=== PATIENT | male | born 1995 | race Caucasian/White ===

== ENCOUNTER 2017-04-15 19:10 | Emergency (ER) | payer BC, OTHER ==
[2017-04-15 20:14] VITALS: BP 131/73; PULSE 64; RESP 18; TEMP 98.2; O2SAT 100
--- NOTE | 2017-04-15 20:40 | PD ---
HPI Chief Complaint: Injury Time Seen by Provider: 20:35 Travel History International Travel<30 days: No Contact w/Intl Traveler<30days: No Traveled to known affect area: No History of Present Illness HPI 21-year-old [id number] male presents for evaluation of left thumb injury. He reports that earlier today he was playing lacrosse when a stick hit his left thumb. He sustained an injury to the left nailbed and nail. He was seen at an urgent care center and told that he had a fracture to the distal phalanx and he was referred here for further evaluation. He reports a mild throbbing pain to the distal left thumb which is worse with palpation, alleviated with lidocaine administration at the urgent care center. His last tetanus vaccination is unknown. He has no other complaints at this time. [facility] Social History Alcohol Use: No Tobacco Use: No Allergies-Medications (Allergen,Severity, Reaction): Coded Allergies: No Known Allergies (Unverified , 04/15/17) Reported Meds & Prescriptions Reported Meds & Active Scripts Active Tylenol-Codeine #3 (Acetaminophen-Codeine) 300-30 mg Tab 1 Tab PO Q4H PRN Keflex (Cephalexin) 500 Mg Capsule 500 Mg PO TID 7 Days Review of Systems General / Constitutional: No: Fever, Chills Musculoskeletal: Positive: Pain Skin: Positive Other (Positive for bleeding, pain) Physical Exam Narrative GENERAL: Well-nourished male in no acute distress SKIN: Warm and dry. HEAD: Atraumatic. Normocephalic. EYES: Pupils equal and round. No scleral icterus. No injection or drainage. ENT: No nasal bleeding or discharge. Mucous membranes pink and moist. NECK: Trachea midline. No JVD. CARDIOVASCULAR: Regular rate and rhythm. No murmur appreciated. RESPIRATORY: No accessory muscle use. Clear to auscultation. Breath sounds equal bilaterally. MUSCULOSKELETAL: Examination of left thumb reveals an injury to the medial nail with an avulsion off the nailbed. There is dried clotted blood underneath the nail. Tender to palpation. NEUROLOGICAL: Awake and alert. No obvious cranial nerve deficits. Motor grossly within normal limits. Normal speech. Data Data Last Documented VS Vital Signs Date Time Temp Pulse Resp B/P (MAP) Pulse Ox O2 Delivery O2 Flow Rate FiO2 04/15/17 20:14 98.2 64 18 131/73 (92) 100 Orders Orders Finger ([id number]) (04/15/17 ) Tetanus/Diphtheria Tox Adult (Tetanus/Di (04/15/17 20:45) Cefazolin 2 Gm Premix (Ancef 2 Gm Premix (04/15/17 20:45) Bupivacaine Pf 0.5% Inj (Marcaine Pf 0.5 (04/15/17 20:45) Splint Or Brace Apply/Monitor (04/15/17 22:28) Ed Discharge Order (04/15/17 22:28) MDM Medical Decision Making Medical Screen Exam Complete: Yes Emergency Medical Condition: Yes Medical Record Reviewed: Yes Differential Diagnosis Open tuft fracture of the left thumb versus fingernail avulsion versus nailbed laceration Narrative Course X-ray imaging will be obtained, tetanus status updated, IV Ancef administered, digital block will be performed with Marcaine. X-ray imaging confirms fracture of the left thumb. The left thumb nail bed was repaired with sutures, she verbally consented. The nail itself was anchored down to provide a splint over the nail bed. The patient will be discharged with a finger splint, Keflex, Tylenol with Codeine, outpatient follow-up with hand specialist. Procedures Procedure Narrative LACERATION LOCATION: Left thumb LENGTH: 2 cm NUMBER OF STITCHES/RAD: 9 REPAIR: The area of the laceration was prepped with Betadine and sterilely draped. The laceration was infiltrated with 1% lidocaine, 0.5% Marcaine digital block. The wound was copiously irrigated and explored without evidence of foreign body, tendon injury or neurovascular injury. The nailbed was repaired with 4 simple interrupted sutures of 5-0 fast absorbing chromic. The nail and the surrounding skin was anchored down with 4-0 nylon and 5-0 nylon simple interrupted. This was a 2 layer repair. A sterile dressing was applied. The patient was advised to keep the dressing clean and dry. Patient tolerated the procedure well. Diagnosis Primary Impression: Fracture of thumb, left, open Additional Impression: Nailbed laceration, finger Referrals: Fabián Washington MD Additional Instructions: Medication as prescribed. Wash the wound gently with soap and water and apply antibiotic cream, clean bandage, splint daily. Follow-up with a hand surgeon such as Dr. Washington in the next 3-5 days. Return for any emergent medical conditions. Med/Other Pt SpecificInfo: Prescription(s) given Scripts Acetaminophen-Codeine (Tylenol-Codeine #3) 300-30 mg Tab 1 TAB PO Q4H Y for PAIN, #15 TAB 0 Refills Prov: Eliezer Garcia MD 04/15/17 Cephalexin (Keflex) 500 Mg Capsule 500 MG PO TID for Infection for 7 Days, CAP 0 Refills Prov: Eliezer Garcia MD 04/15/17 Disposition: 01 DISCHARGE HOME Condition: Stable William Kate Apr 15, 2017 20:40
[2017-04-15] MEDS ORDERED: TETANUS/DIPHTHERIA TOXOID ADULT 0.5 ML VIAL IM ONE (20:45)
[2017-04-15] MEDS ORDERED: ceFAZolin 2 GM PREMIX 50 ML IV ONE (20:45)
[2017-04-15] MEDS ORDERED: BUPIVACAINE HCL PF 0.5% 10 ML VIAL INFIL ONE (20:45)
--- NOTE | 2017-04-15 21:30 | RADRPT ---
EXAM DATE/TIME: 04/15/2017 20:56 [place] COMPARISON: No previous studies available for comparison. INDICATIONS : Left hand, 1st digit laceration after hit with a lacross stick. MEDICAL HISTORY : None. SURGICAL HISTORY : None. ENCOUNTER: Initial ACUITY: 1 day PAIN SCORE: 10/10 LOCATION: Left hand, 1st digit. FINDINGS: There are several fractures of the distal phalanx of the 1st digit including a comminuted fracture of the tuft and an oblique fracture through the metaphysis with mild angulation. No definite intra-art icular extent. No radiopaque foreign bodies. CONCLUSION: Fractures of both the tuft and proximal metaphysis of the distal phalanx of the 1st digit. Ronaldo Henry MD on April 15, 2017 at 21:28 Board Certified Radiologist. This report was verified electronically.
[2017-04-15] MEDS ORDERED: TYLETAB34 PO (22:27)
[2017-04-15] MEDS ORDERED: CEPH-460 PO (22:27)
== END 2017-04-15 23:17 | disposition home or self-care (01) ==
LOC: NEPD 19:10
DX: S62.512B Displaced fracture of proximal phalanx of left thumb, initial encounter for open fracture (principal); S62.522B Displaced fracture of distal phalanx of left thumb, initial encounter for open fracture; W21.19XA Struck by other bat, racquet or club, initial encounter; Y93.65 Activity, lacrosse and field hockey; Z23 Encounter for immunization
CPT/HCPCS: 12041; 73140; 90471; 90714; 96374; 99284; J0690